=== PATIENT | male | born 2000 | race Caucasian/White ===

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

== ENCOUNTER 2018-02-20 23:17 | Emergency (ER) | payer SELFPAY ==
[2018-02-20] MEDS: IV NORMAL SALINE 1000ML BAG 1,000 ML IV (23:45)
[2018-02-21 00:16] LABS: ADD MAN DIFF? NO
[2018-02-21 00:19] LABS: BASO % 0 % (0-3); EOS # 0.2 x10^3/uL (0.0-0.7); EOS % 3 % (0-3); HEMATOCRIT 47.9 % (39.0-53.0); HEMOGLOBIN 16.5 g/dL (13.0-17.5); LYMPH # 2.3 x10^3/uL (1.0-4.8); LYMPH % 27 % (24-48); MEAN CORPUSCULAR HEMOGLOBIN 31 pg (25-35); MEAN CORPUSCULAR HGB CONC 34 g/dL (31-37); MEAN CORPUSCULAR VOLUME 90 fL (79-100); MONO # 0.6 x10^3/uL (0.0-1.1); MONO % 7 % (0-9); NEUT # 5.5 x10^3uL (1.8-7.7); NEUT % 64 % (31-73); PLATELET COUNT 259 x10^3/uL (140-400); RED BLOOD COUNT 5.34 x10^6/uL (4.30-5.70); RED CELL DISTRIBUTION WIDTH 13.9 % (11.5-14.5); WHITE BLOOD COUNT 8.6 x10^3/uL (4.0-11.0)
[2018-02-21 00:25] LABS: ANION GAP 9 (6-14); BLOOD UREA NITROGEN 13 mg/dL (8-26); CALCIUM 9.5 mg/dL (8.5-10.1); CARBON DIOXIDE 29 mmol/L (21-32); CHLORIDE 101 mmol/L (98-107); CREATININE 0.9 mg/dL (0.7-1.3); GFR 108.7; GLUCOSE 69 mg/dL (70-99); POTASSIUM 3.9 mmol/L (3.5-5.1); SODIUM 139 mmol/L (136-145)
[2018-02-21 01:04] LABS: BARBITURATES NEG (NEG); BENZODIAZEPINES NEG (NEG); CANNABINOIDS POS (NEG); COCAINE NEG (NEG); METHADONE NEG (NEG); OPIATES NEG (NEG); PHENCYCLIDINE NEG (NEG)
[2018-02-21 01:05] LABS: AMPHETAMINE/METHAMPHETAMINE NEG (NEG); ETHANOL, URINE NEG (NEG)
== END 2018-02-21 02:45 | disposition home or self-care (01) ==
LOC: ER 02-21 02:45
DX: S50.811A Abrasion of right forearm, initial encounter (principal); F12.10 Cannabis abuse, uncomplicated; R56.9 Unspecified convulsions; F32.9 Major depressive disorder, single episode, unspecified; F90.9 Attention-deficit hyperactivity disorder, unspecified type; Z79.899 Other long term (current) drug therapy; Y33.XXXA Other specified events, undetermined intent, initial encounter; Y93.89 Activity, other specified; Y92.89 Other specified places as the place of occurrence of the external cause; Y99.8 Other external cause status
CPT/HCPCS: 36415; 70450; 80048; 80307; 85025; 93005; 96360; 99285-25; J7030

== ENCOUNTER 2018-04-09 10:56 | Inpatient (IN) | payer SELFPAY ==
[2018-04-09 11:33] LABS: ADD MAN DIFF? NO
[2018-04-09 11:39] LABS: BASO % 0 % (0-3); EOS # 0.1 x10^3/uL (0.0-0.7); EOS % 1 % (0-3); HEMATOCRIT 41.7 % (39.0-53.0); HEMOGLOBIN 14.7 g/dL (13.0-17.5); LYMPH # 1.7 x10^3/uL (1.0-4.8); LYMPH % 19 % (24-48); MEAN CORPUSCULAR HEMOGLOBIN 31 pg (25-35); MEAN CORPUSCULAR HGB CONC 35 g/dL (31-37); MEAN CORPUSCULAR VOLUME 88 fL (79-100); MONO # 0.7 x10^3/uL (0.0-1.1); MONO % 7 % (0-9); NEUT # 6.5 x10^3uL (1.8-7.7); NEUT % 73 % (31-73); PLATELET COUNT 277 x10^3/uL (140-400); RED BLOOD COUNT 4.74 x10^6/uL (4.30-5.70); RED CELL DISTRIBUTION WIDTH 13.5 % (11.5-14.5); WHITE BLOOD COUNT 8.9 x10^3/uL (4.0-11.0)
[2018-04-09 11:46] LABS: ANION GAP 10 (6-14); BLOOD UREA NITROGEN 15 mg/dL (8-26); BUN/CREATININE RATIO 17 (6-20); CALCIUM 9.9 mg/dL (8.5-10.1); CARBON DIOXIDE 27 mmol/L (21-32); CHLORIDE 105 mmol/L (98-107); CREATININE 0.9 mg/dL (0.7-1.3); GFR 108.7; GLUCOSE 104 mg/dL (70-99); POTASSIUM 3.8 mmol/L (3.5-5.1); SODIUM 142 mmol/L (136-145)
[2018-04-09 11:52] LABS: ALBUMIN 4.4 g/dL (3.4-5.0); ALBUMIN/GLOBULIN RATIO 1.2 (1.0-1.7); ALK PHOS 77 U/L (46-116); ALT (SGPT) 52 U/L (16-63); AST (SGOT) 30 U/L (15-37); TOTAL BILIRUBIN 0.5 mg/dL (0.2-1.0)
[2018-04-09] MEDS: IBUPROFEN 800 MG TABLET. PO (12:29)
[2018-04-09] MEDS ORDERED: PROCHLORPERAZINE 25 MG SUPP.RECT. PR (12:30)
[2018-04-09] MEDS ORDERED: BISACODYL 10 MG SUPP.RECT. PR (12:30)
[2018-04-09] MEDS ORDERED: ACETAMINOPHEN 325 MG TABLET. PO ×2 (12:30)
[2018-04-09] MEDS ORDERED: MORPHINE SULFATE 4 MG/ML DISP.SYRIN. IV ×2 (12:30)
[2018-04-09] MEDS ORDERED: PROCHLORPERAZINE 10 MG/2 ML VIAL. IV (12:30)
[2018-04-09] MEDS ORDERED: oxyCODONE IR 5 MG TABLET PO (12:30)
[2018-04-09] MEDS ORDERED: CALCIUM CARBONATE 500 MG TAB.CHEW PO (12:30)
[2018-04-09] MEDS ORDERED: ONDANSETRON PF 4 MG/2 ML VIAL. IV ×2 (12:30)
[2018-04-09] MEDS ORDERED: ZOLPIDEM 5 MG TABLET. PO (12:30)
[2018-04-09] MEDS ORDERED: fentaNYL PF VIAL 100 MCG/2 ML VIAL IV (12:30)
[2018-04-09] MEDS ORDERED: MAG HYDROX/ALUMINUM HYD/SIMETH 30 ML ORAL.SUSP PO (12:30)
[2018-04-09] MEDS ORDERED: MAGNESIUM HYDROXIDE 2,400 MG/30 ML ORAL.SUSP. PO (12:30)
[2018-04-09] MEDS: IBUPROFEN 400 MG TABLET. PO ×2 (14:01→21:48)
[2018-04-09] MEDS: MUPIROCIN 2 % TOPICAL CREAM 15GM TUBE. TP ×2 (14:30→21:24)
[2018-04-09] MEDS ORDERED: NICOTINE 21MG PATCH. TD (14:30)
[2018-04-10 04:47] LABS: ADD MAN DIFF? NO
[2018-04-10 04:54] LABS: BASO % 0 % (0-3); EOS # 0.2 x10^3/uL (0.0-0.7); EOS % 3 % (0-3); HEMATOCRIT 42.6 % (39.0-53.0); HEMOGLOBIN 14.5 g/dL (13.0-17.5); LYMPH # 2.5 x10^3/uL (1.0-4.8); LYMPH % 32 % (24-48); MEAN CORPUSCULAR HEMOGLOBIN 30 pg (25-35); MEAN CORPUSCULAR HGB CONC 34 g/dL (31-37); MEAN CORPUSCULAR VOLUME 89 fL (79-100); MONO # 0.8 x10^3/uL (0.0-1.1); MONO % 10 % (0-9); NEUT # 4.4 x10^3uL (1.8-7.7); NEUT % 55 % (31-73); PLATELET COUNT 259 x10^3/uL (140-400); RED CELL DISTRIBUTION WIDTH 13.2 % (11.5-14.5)
[2018-04-10 05:10] LABS: ANION GAP 11 (6-14); BLOOD UREA NITROGEN 14 mg/dL (8-26); CALCIUM 8.9 mg/dL (8.5-10.1); CARBON DIOXIDE 27 mmol/L (21-32); CHLORIDE 104 mmol/L (98-107); CREATININE 0.8 mg/dL (0.7-1.3); GFR 124.5; GLUCOSE 80 mg/dL (70-99); POTASSIUM 3.6 mmol/L (3.5-5.1); SODIUM 142 mmol/L (136-145)
[2018-04-10] MEDS: NICOTINE 21MG PATCH. TD ×2 (08:11→10:44)
[2018-04-10] MEDS: MUPIROCIN 2 % TOPICAL CREAM 15GM TUBE. TP (09:00)
[2018-04-10] MEDS: IBUPROFEN 400 MG TABLET. PO (12:24)
== END 2018-04-10 14:42 | disposition home or self-care (01) | DRG 605 ==
LOC: ER 10:56 → 5 SOUTH 12:22
DX: S80.02XA Contusion of left knee, initial encounter (principal); F31.4 Bipolar disorder, current episode depressed, severe, without psychotic features; F12.90 Cannabis use, unspecified, uncomplicated; F17.210 Nicotine dependence, cigarettes, uncomplicated; F41.9 Anxiety disorder, unspecified; F90.9 Attention-deficit hyperactivity disorder, unspecified type; R07.89 Other chest pain; S80.212A Abrasion, left knee, initial encounter; Z81.8 Family history of other mental and behavioral disorders; Z91.5 Personal history of self-harm; Y93.89 Activity, other specified; Y92.89 Other specified places as the place of occurrence of the external cause; Y99.8 Other external cause status
CPT/HCPCS: 36415; 71046; 72170; 73562; 80048; 80053; 85025; 99285; 99285-25

== ENCOUNTER 2021-06-11 11:48 | Emergency (ER) | payer SELFPAY ==
[~2021-06-11] VITALS: Ht 170.2 cm; Wt 79.5 kg
[~2021-06-11 11:48] MED LIST: DEXT20TA2 PO; FLUO20CA16 PO; HYDR-3164 PO
[2021-06-11 12:14] VITALS: BP 143/68
--- NOTE | 2021-06-11 12:18 | PHYS DOC ---
Past Medical History Past Medical History: Bipolar, Depression, Other Additional Past Medical Histor: ADHD (PAOLA AGUILA Beata ROUSTABOUT HEAD) Past Surgical History: No Surgical History (PAOLA AGUILA Beata ROUSTABOUT HEAD) Smoking Status: Current Every Day Smoker Alcohol Use: Heavy Drug Use: Marijuana, Methamphetamine (PAOLA AGUILA Beata ROUSTABOUT HEAD) General Adult EDM: Chief Complaint: OTHER COMPLAINTS HPI: HPI: Patient is a 20 year old male with history of depression, bipolar, who presents to the ED today complaining of loss of smell for 1-1/2 weeks. Patient denies any other symptoms. Requesting Covid vaccine. (PAOLA AGUILA Beata ROUSTABOUT HEAD) Review of Systems: Review of Systems: Constitutional: Denies fever or chills. [] Eyes: Denies change in visual acuity. [] HENT: Reports loss of smell. Denies nasal congestion or sore throat. [] Respiratory: Denies cough or shortness of breath. [] Cardiovascular: Denies chest pain or edema. [] GI: Denies abdominal pain, nausea, vomiting, bloody stools or diarrhea. [] : Denies dysuria. [] Musculoskeletal: Denies back pain or joint pain. [] Integument: Denies rash. [] Neurologic: Denies headache, focal weakness or sensory changes. [] Psychiatric: Denies depression or anxiety. [] (PAOLA AGUILA Beata ROUSTABOUT HEAD) Heart Score: C/O Chest Pain: N/A Risk Factors: Risk Factors: DM, Current or recent (<one month) smoker, HTN, HLP, family history of CAD, obesity. Risk Scores: Score 0 - 3: 2.5% MACE over next 6 weeks - Discharge Home Score 4 - 6: 20.3% MACE over next 6 weeks - Admit for Clinical Observation Score 7 - 10: 72.7% MACE over next 6 weeks - Early Invasive Strategies (KAYLEEBaljeetPAOLA Beata ROUSTABOUT HEAD) Allergies: Allergies: Allergies Coded Allergies Type Severity Reaction Last Updated Verified No Known Drug Allergies 08/28/14 No (AYLAPAOLA Beata ROUSTABOUT HEAD) Physical Exam: PE: Constitutional: Well developed, well nourished, no acute distress, non-toxic appearance. [] HENT: Normocephalic, atraumatic, bilateral external ears normal, oropharynx moist, no oral exudates, nose normal. [] Eyes: PERRLA, EOMI, conjunctiva normal, no discharge. [] Neck: Normal range of motion, no tenderness, supple, no stridor. [] Cardiovascular:Heart rate regular rhythm, no murmur [] Lungs & Thorax: Bilateral breath sounds clear to auscultation [] Abdomen: Bowel sounds normal, soft, no tenderness, no masses, no pulsatile masses. [] Skin: Warm, dry, no erythema, no rash. [] Back: No tenderness, no CVA tenderness. [] Extremities: No tenderness, no cyanosis, no clubbing, ROM intact, no edema. [] Neurologic: Alert and oriented X 3, normal motor function, normal sensory function, no focal deficits noted. [] Psychologic: Affect normal, judgement normal, mood normal. [] (PAOLA AGUILA APRN) EKG: EKG: [] (PAOLA AGUILA APRN) Radiology/Procedures: Radiology/Procedures: [] (PAOLA AGUILA APRN) Course & Med Decision Making: Course & Med Decision Making Pertinent Labs and Imaging studies reviewed. (See chart for details) This is a 20-year-old male patient presented to the ED today complaining of loss of smell for 1-1/2 weeks. Patient was tested for COVID-19. Quarantine me asures recommended until results are back. Good hand hygiene and mask wearing discussed. Patient wanted a Covid vaccine, gave him resources for where to go for the vaccine (PAOLA AGUILA APRN) Dragon Disclaimer: Dragon Disclaimer: This electronic medical record was generated, in whole or in part, using a voice recognition dictation system. (PAOLA AGUILA APRN) Departure Departure Impression: Primary Impression: Anosmia Disposition: HOME / SELF CARE / HOMELESS Condition: STABLE Referrals: NO PCP (PCP) follow up with your doctor in one week Patient Instructions: Upper Respiratory Infection, Adult, [id number] Additional Instructions: You were tested for COVID-19, quarantine yourself until results are back. We will call you in the course of this week and let you know if your test is positive or negative. You can go to [facility], [facility], to get a Covid vaccine. Attending Signature Attending Signature I have reviewed the PA/CONVENTION WORKER's note and plan of care. I was available for consultation as needed during the patient's visit in the emergency department. I agree with the clinical impression, plan, and disposition. (COLLEEN SALAZAR DO) PAOLA AGUILA APRN Jun 11, 2021 12:18 COLLEEN SALAZAR DO Jun 11, 2021 16:53
--- NOTE | 2021-06-12 16:46 | NUR ---
IP: Informed pt of positive covid test and the need to quarantine for 10 days. Pt verbalized understanding.
== END 2021-06-11 12:40 | disposition home or self-care (01) ==
LOC: ER 11:48
DX: U07.1 COVID-19 (principal); R43.0 Anosmia; F31.9 Bipolar disorder, unspecified; F90.9 Attention-deficit hyperactivity disorder, unspecified type; F10.20 Alcohol dependence, uncomplicated; Y90.9 Presence of alcohol in blood, level not specified
CPT/HCPCS: 99283; U0003; U0005